=== PATIENT | male | born 1975 | race Two or more races ===

== ENCOUNTER 2020-10-19 19:37 | Emergency (ER) | payer MEDICAID, OTHER ==
[~2020-10-19] VITALS: Ht 170.2 cm; Wt 84.4 kg
[2020-10-19 22:17] VITALS: BP 124/88
[2020-10-19] MEDS ORDERED: KETOROLAC TROMETH 60MG/2ML VIAL IM ONE (22:45)
[2020-10-19] MEDS ORDERED: methylPREDNISolone SOD SUCC 125 MG/2 ML VL IM ONE (22:45)
== END 2020-10-20 01:09 | disposition home or self-care (01) ==
LOC: ER 19:39
DX: S62.232A Other displaced fracture of base of first metacarpal bone, left hand, initial encounter for closed fracture (principal); S62.300A Unspecified fracture of second metacarpal bone, right hand, initial encounter for closed fracture; W22.8XXA Striking against or struck by other objects, initial encounter; Y93.89 Activity, other specified; Y92.89 Other specified places as the place of occurrence of the external cause; Y99.8 Other external cause status
CPT/HCPCS: 29125; 73110; 73130; 96372; J1885

== ENCOUNTER 2021-10-17 12:46 | Emergency (ER) | payer MEDICAID ==
[~2021-10-17] VITALS: Ht 170.2 cm; Wt 81.0 kg
[2021-10-17] MEDS ORDERED: TETANUS-DIPTH-ACEL PERTUSSIS 0.5ML SYR Tdap IM ONE (17:30)
[2021-10-17] MEDS ORDERED: cefTRIAXone SOD 1,000 MG VL IM ONE (17:30)
[2021-10-17] MEDS ORDERED: KETOROLAC TROMETH 60MG/2ML VIAL IM ONE (17:30)
[2021-10-17] MEDS ORDERED: IBUP800T27 PO (17:40)
[2021-10-17] MEDS ORDERED: SULF800T7 PO (17:40)
[2021-10-17] MEDS ORDERED: CEPH-510 PO (17:52)
[2021-10-17] MEDS ORDERED: CLIN300C8 PO (17:52)
[2021-10-17] MEDS ORDERED: CLINDAMYCIN 900MG IV 50 ML IV ONE (18:00)
[2021-10-17] MEDS ORDERED: cefTRIAXone 1GM/50ML D5W 50 ML IV ONE (18:00)
[2021-10-17] MEDS ORDERED: SODIUM CHLORIDE 0.9% 1,000 ML IV ONE (18:00)
[2021-10-17 20:28] VITALS: BP 149/95
== END 2021-10-17 20:29 | disposition home or self-care (01) ==
LOC: ER 12:46
DX: L02.811 Cutaneous abscess of head [any part, except face] (principal); Z79.2 Long term (current) use of antibiotics; Z79.1 Long term (current) use of non-steroidal anti-inflammatories (NSAID)
CPT/HCPCS: 70450; 90471; 90715; 96361; 96365; 96368; 96372; 99284; J0696; J1885; J3490; J7030

== ENCOUNTER 2021-10-30 12:08 | Inpatient (IN) | payer MEDICAID ==
[~2021-10-30] VITALS: Ht 170.2 cm; Wt 84.5 kg
[~2021-10-30 12:08] MED LIST: CEPH-510 PO; CLIN300C8 PO; IBUP800T27 PO
[2021-10-30 13:27] LABS: Basophils # (auto) 0 10 ^3/uL (0-0.2); Basophils % (auto) 0.3 % (0.0-2.0); Eosinophils # (auto) 0.4 10 ^3/uL (0-0.8); Eosinophils % (auto) 4.2 % (0.0-7.0); Hematocrit 50.6 % (41.0-53.0); Hemoglobin 16.5 g/dL (13.5-17.5); Lymphocytes # (auto) 1.3 10 ^3/uL (0.4-5.4); Lymphocytes % (auto) 12.4 % (10.0-50.0); Mean Corpuscular Hemoglobin 28.9 pg (28.0-32.0); Mean Corpuscular Hgb Conc. 32.7 g/dL (32.0-36.0); Mean Corpuscular Volume 88.3 fL (80.0-100.0); Monocytes # (auto) 0.6 10 ^3/uL (0-1.3); Monocytes % (auto) 5.3 % (0.0-12.0); Neutrophils # (auto) 8.3 10 ^3/uL (1.6-8.6); Neutrophils % (auto) 77.8 % (37.0-80.0); Nucleated Red Blood Cells % 0.1 %; Red Blood Cells 5.73 10^6/uL (4.5-5.90); White Blood Cell 10.7 10^3/uL (4.4-10.8)
[2021-10-30 13:47] LABS: Calcium 8.3 mg/dL (8.5-10.1); Potassium 4.5 mmol/L (3.5-5.1)
[2021-10-30 13:50] LABS: Lactic Acid w/Reflex 2.5 mmol/L (0.4-2.0)
[2021-10-30 13:52] LABS: BUN/Creatinine Ratio 18.8; Bilirubin, Total 0.4 mg/dL (0.2-1.0); CRP High Sensitivity 0.25 mg/dL (< 0.3); Total Protein 7.2 g/dL (6.4-8.2)
[2021-10-30] MEDS ORDERED: DOXY-340 PO (16:46)
[2021-10-30 17:40] LABS: Amphetamine Screen, Urine POSITIVE (NEGATIVE); Barbiturate Scree,Urine NEGATIVE (NEGATIVE); Benzodiazephine Screen, Urine NEGATIVE (NEGATIVE); Cannabinoid Screen, Urine NEGATIVE (NEGATIVE); Cocaine Screen, Urine NEGATIVE (NEGATIVE); Opiate Scree,Urine NEGATIVE (NEGATIVE); Phencyclidine Screen, Urine NEGATIVE (NEGATIVE)
[2021-10-30] MEDS ORDERED: CLINDAMYCIN 900MG IV 50 ML IV ONE (17:45)
[2021-10-30] MEDS ORDERED: ONDANSETRON HCL 4 MG/2 ML VIAL IV PRN (23:00)
[2021-10-30] MEDS ORDERED: ACETAMINOPHEN 325 MG TAB PO PRN (23:00)
[2021-10-30] MEDS ORDERED: TEMAZEPAM 15 MG CAP PO PRN (23:00)
[2021-10-31 05:04] LABS: Basophils # (auto) 0 10 ^3/uL (0-0.2); Basophils % (auto) 0.4 % (0.0-2.0); Eosinophils # (auto) 0.5 10 ^3/uL (0-0.8); Eosinophils % (auto) 4.7 % (0.0-7.0); Hematocrit 44.3 % (41.0-53.0); Lymphocytes # (auto) 1.5 10 ^3/uL (0.4-5.4); Lymphocytes % (auto) 14.6 % (10.0-50.0); Mean Corpuscular Hemoglobin 29.8 pg (28.0-32.0); Mean Corpuscular Hgb Conc. 33.8 g/dL (32.0-36.0); Mean Corpuscular Volume 88.2 fL (80.0-100.0); Monocytes # (auto) 0.6 10 ^3/uL (0-1.3); Monocytes % (auto) 5.7 % (0.0-12.0); Neutrophils # (auto) 7.5 10 ^3/uL (1.6-8.6); Neutrophils % (auto) 74.6 % (37.0-80.0); Red Blood Cells 5.02 10^6/uL (4.5-5.90); Red Cell Distribution Width 13.9 % (11.8-14.3); White Blood Cell 10.1 10^3/uL (4.4-10.8)
[2021-10-31 05:22] LABS: BUN/Creatinine Ratio 30.8; Calcium 7.9 mg/dL (8.5-10.1); Potassium 4.6 mmol/L (3.5-5.1)
[2021-10-31] MEDS: CLINDAMYCIN 600MG IV 50 ML IV SCH ×3 (06:30→21:51)
[2021-10-31] MEDS: PANTOPRAZOLE 40 MG TAB PO SCH (10:33)
[2021-10-31 10:38] VITALS: BP 124/80
[2021-10-31] MEDS: HYDROcodone-ACET 5/325MG TAB PO PRN ×2 (10:55→21:51)
[2021-10-31 13:00] VITALS: BP 120/79
[2021-10-31 17:27] VITALS: BP_SYST 108; BP_SYST 116; BP_DIAS 64; BP_DIAS 74
[2021-10-31 22:00] VITALS: BP 120/77
[2021-11-01] MEDS: CLINDAMYCIN 600MG IV 50 ML IV SCH ×3 (05:50→21:28)
[2021-11-01 08:40] VITALS: BP 121/72
[2021-11-01] MEDS: PANTOPRAZOLE 40 MG TAB PO SCH (10:35)
[2021-11-01 12:50] VITALS: BP 115/77
[2021-11-01 16:40] VITALS: BP 136/90
[2021-11-01 21:55] VITALS: BP 134/80
[2021-11-02 05:16] VITALS: BP 120/81
[2021-11-02] MEDS: CLINDAMYCIN 600MG IV 50 ML IV SCH (05:44)
[2021-11-02 09:00] VITALS: BP 122/78
[2021-11-02] MEDS ORDERED: CEPH-510 PO (10:53)
[2021-11-02] MEDS: PANTOPRAZOLE 40 MG TAB PO SCH (11:16)
== END 2021-11-02 12:55 | disposition home or self-care (01) | DRG 383 ==
LOC: ER 12:08 → OVERFLOW 22:57 → WEST WING 10-31 08:20
PROVIDERS: ADMIT Nurse Practitioner; ATTEND Internal Medicine
DX: L03.116 Cellulitis of left lower limb (principal); E87.2 Acidosis; F15.90 Other stimulant use, unspecified, uncomplicated; Z20.822 Contact with and (suspected) exposure to COVID-19; W57.XXXA Bitten or stung by nonvenomous insect and other nonvenomous arthropods, initial encounter; E86.0 Dehydration; L02.11 Cutaneous abscess of neck; Z87.891 Personal history of nicotine dependence; Y93.89 Activity, other specified; Y92.89 Other specified places as the place of occurrence of the external cause; Y99.8 Other external cause status; Z71.6 Tobacco abuse counseling
CPT/HCPCS: 36415; 80048; 80053; 80307; 83605; 85025; 85652; 86141; 87040; 96365; G0378; J3490

== ENCOUNTER 2022-08-21 00:38 | Emergency (ER) | payer MEDICAID ==
[~2022-08-21] VITALS: Ht 170.2 cm; Wt 77.2 kg
[2022-08-21 00:38] VITALS: BP 149/97
[~2022-08-21 00:38] MED LIST changes: -CLIN300C8 PO; -IBUP800T27 PO
[2022-08-21 01:21] LABS: Basophils # (auto) 0.1 10 ^3/uL (0-0.2); Basophils % (auto) 0.9 % (0.0-2.0); Eosinophils # (auto) 0.1 10 ^3/uL (0-0.8); Eosinophils % (auto) 1.7 % (0.0-7.0); Hematocrit 48.3 % (41.0-53.0); Hemoglobin 16.2 g/dL (13.5-17.5); Lymphocytes % (auto) 24.2 % (10.0-50.0); Mean Corpuscular Hemoglobin 29.8 pg (28.0-32.0); Mean Corpuscular Hgb Conc. 33.5 g/dL (32.0-36.0); Mean Corpuscular Volume 89.1 fL (80.0-100.0); Monocytes # (auto) 0.7 10 ^3/uL (0-1.3); Monocytes % (auto) 8.3 % (0.0-12.0); Neutrophils # (auto) 5.4 10 ^3/uL (1.6-8.6); Neutrophils % (auto) 64.9 % (37.0-80.0); Red Blood Cells 5.42 10^6/uL (4.5-5.90); Red Cell Distribution Width 13.9 % (11.8-14.3); White Blood Cell 8.4 10^3/uL (4.4-10.8)
[2022-08-21 01:43] LABS: Albumin 4.4 g/dL (3.4-5.0); BUN/Creatinine Ratio 16.4 (10.0-20.0); Calcium 8.4 mg/dL (8.5-10.1); Potassium 4.1 mmol/L (3.5-5.1)
[2022-08-21 01:54] LABS: Bilirubin, Total 0.3 mg/dL (0.2-1.0); Total Protein 7.3 g/dL (6.4-8.2)
== END 2022-08-21 06:25 | disposition home or self-care (01) ==
LOC: ER 00:38
DX: K62.5 Hemorrhage of anus and rectum (principal); F15.90 Other stimulant use, unspecified, uncomplicated; Z79.899 Other long term (current) drug therapy
CPT/HCPCS: 36415; 71045; 74176; 80053; 83690; 85025